=== PATIENT | male | born 1970 | race Caucasian/White ===

== ENCOUNTER 2016-11-22 14:48 | Emergency (ER) | payer OTHER ==
[~2016-11-22] VITALS: Ht 185.4 cm; Wt 106.5 kg
[~2016-11-22 14:48] MED LIST: DIAZ5 PO; MECL-62 PO; ZOFR4TAB3 SL
[2016-11-22 14:52] VITALS: BP 143/102; PULSE 75; RESP 13; TEMP 98.6; O2SAT 98
[2016-11-22 15:32] VITALS: BP 145/91; PULSE 62; RESP 16; O2SAT 99
[2016-11-22] MEDS ORDERED: ORPHENADRINE INJ 60 MG/2 ML AMP IM ONE (15:45)
[2016-11-22] MEDS ORDERED: KETOROLAC TROMETHAMINE 60 MG/2 ML (IM) VIAL IM ONE (15:45)
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
[2016-11-22] MEDS ORDERED: ONDANSETRON ODT 4 MG TAB PO ONE (16:45)
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
[2016-11-22] MEDS ORDERED: IBUP-232 PO (17:30)
[2016-11-22] MEDS ORDERED: ROBA500T PO (17:30)
[2016-11-22] MEDS ORDERED: ZOFR4TAB3 SL (17:30)
== END 2016-11-22 17:50 | disposition home or self-care (01) ==
LOC: NEPD 14:48
DX: S06.9X9A Unspecified intracranial injury with loss of consciousness of unspecified duration, initial encounter (principal); S20.211A Contusion of right front wall of thorax, initial encounter; V49.9XXA Car occupant (driver) (passenger) injured in unspecified traffic accident, initial encounter; W22.10XA Striking against or struck by unspecified automobile airbag, initial encounter; Y92.411 Interstate highway as the place of occurrence of the external cause
CPT/HCPCS: 70450; 71010; 72125; 96372; 99285; J1885; J2360; L0150